=== PATIENT | female | born 1995 | race Caucasian/White ===

== ENCOUNTER 2016-10-18 15:43 | Observation (INO) | payer BC, MEDICAID ==
[~2016-10-18 15:43] MED LIST: ALPRAZOLAM1 M2 PO; MOTRIN600 MG PO; SEASONIQUE1 BLIST PA PO
[2016-10-18 16:32] LABS: URINE BILIRUBIN NEGATIVE (NEG); URINE BLOOD NEGATIVE (NEG); URINE GLUCOSE (UA) NEGATIVE (NEG); URINE KETONE NEGATIVE (NEG); URINE LEUKOCYTE ESTERASE NEGATIVE (NEG); URINE NITRITE NEGATIVE (NEG); URINE PROTEIN SMALL (NEG); URINE SPECIFIC GRAVITY 1.015 (1.003-1.030)
[2016-10-18 16:35] LABS: URINE APPEARANCE HAZY; URINE COLOR YELLOW
[2016-10-18 16:48] LABS: URINE EPITHELIAL CELLS 0 /[HPF] (0-10); URINE RBC 0 /[HPF] (0-5); URINE WBC 0 /[HPF] (0-5)
[2016-10-18] MEDS ORDERED: PRENATAL-U CAPS1 CAP PO (17:55)
[2017-01-04] MEDS ORDERED: TYLENOL EXTRA500 M1 PO (13:04)
[2017-02-19] MEDS ORDERED: ULTRAM50 M1 PO (13:40)
[2017-02-19] MEDS ORDERED: SURFAK240 M2 PO (13:41)
[2017-02-20] MEDS ORDERED: IBUPROFEN600 M1 PO (11:54)
== END 2016-10-18 17:45 ==
LOC: LDR 15:43
PROVIDERS: Obstetrics & Gynecology; ADMIT Obstetrics & Gynecology
DX: O42.912 Preterm premature rupture of membranes, unspecified as to length of time between rupture and onset of labor, second trimester (principal); Z3A.23 23 weeks gestation of pregnancy; Z79.899 Other long term (current) drug therapy; Z88.1 Allergy status to other antibiotic agents; Z88.5 Allergy status to narcotic agent

== ENCOUNTER 2016-12-06 10:21 | Emergency (ER) | payer BC, MEDICAID ==
[~2016-12-06 10:21] MED LIST changes: +PRENATAL-U CAPS1 CAP PO
[2016-12-06 11:42] LABS: BASO % 0.2 % (0-2); EOS % 1.1 % (0-7); EOSINOPHIL ABSOLUTE COUNT 0.1 tho/cmm (0.0-0.7); HCT-HEMATOCRIT 28.6 % (34.0-49.0); IMMATURE GRANULOCYTES ABSOLUTE 0.02 tho/cmm (0-0.03); IMMATURE GRANULOCYTES PERCENT 0.3 % (0-0.3); LYMPH % 17.7 % (20-45); LYMPH ABSOLUTE COUNT 1.1 tho/cmm (0.8-4.5); MCH (MEAN CORPUSCULAR HGB) 29.6 pg (28.0-32.0); MCV (MEAN CELL VOLUME) 84.6 fl (82.0-96.0); MEAN PLATELET VOLUME 9.1 cmc (9.4-12.4); MONO % 7.3 % (0-12); MONOCYTE ABSOLUTE COUNT 0.5 tho/cmm (0.0-1.2); NEUTROPHIL ABSOLUTE COUNT 4.6 tho/cmm (1.6-8.0); NEUTROPHIL-AUTOMATED 4.6 tho/cmm (1.6-8.0); NEUTROPHILS % 73.4 % (40-80); PLATELET COUNT 171 tho/cmm (150-450); RED BLOOD COUNT 3.38 mil/cmm (4.00-5.20); WHITE BLOOD COUNT 6.3 tho/cmm (4.0-10.0)
[2016-12-06 11:56] LABS: ALB/GLOB RATIO 0.7 (0.8-2.0); ALBUMIN 2.5 g/dl (3.5-5.0); ALKALINE PHOSPHATASE 62 U/L (33-138); ALT/SGPT 17 U/L (12-78); ANION GAP 11 mmol/L (0-20); AST/SGOT 11 U/L (10-40); BILIRUBIN,TOTAL 0.2 mg/dl (0-1.5); BLOOD UREA NITROGEN 5 mg/dl (6-24); CALCIUM 7.9 mg/dl (8.5-10.5); CARBON DIOXIDE-VENOUS 23 mmol/L (22-32); CHLORIDE 108 mmol/l (96-110); CREATININE 0.53 mg/dl (0.50-1.10); GLUCOSE 76 mg/dL (70-110); POTASSIUM 3.4 mmol/L (3.7-5.1); SODIUM 139 mmol/L (135-145); eGFR VALUE FOR BLACK >90 mL/Min
[2016-12-06 11:59] LABS: URINE APPEARANCE CLEAR; URINE BILIRUBIN NEGATIVE (NEG); URINE BLOOD NEGATIVE (NEG); URINE COLOR YELLOW; URINE GLUCOSE (UA) NEGATIVE (NEG); URINE KETONE NEGATIVE (NEG); URINE LEUKOCYTE ESTERASE POSITIVE (NEG); URINE NITRITE NEGATIVE (NEG); URINE PH 6.5 (5.0-8.0); URINE PROTEIN NEGATIVE (NEG); URINE SPECIFIC GRAVITY 1.015 (1.003-1.030)
[2016-12-06 12:16] LABS: URINE BACTERIA 1+; URINE RBC 0 /[HPF] (0-5)
[2017-01-04] MEDS ORDERED: TYLENOL EXTRA500 M1 PO (13:04)
[2017-02-19] MEDS ORDERED: ULTRAM50 M1 PO (13:40)
[2017-02-19] MEDS ORDERED: SURFAK240 M2 PO (13:41)
[2017-02-20] MEDS ORDERED: IBUPROFEN600 M1 PO (11:54)
== END 2016-12-06 12:42 ==
LOC: EDMED 10:21
PROVIDERS: Emergency Medicine
DX: O99.89 Other specified diseases and conditions complicating pregnancy, childbirth and the puerperium (principal); R51 Headache; Z3A.30 30 weeks gestation of pregnancy
CPT/HCPCS: J2765; J7030